=== PATIENT | female | born 1955 | race Caucasian/White ===

== ENCOUNTER → 2023-10-29 08:03 | Outpatient (REF) | payer MEDICARE, OTHER, SELFPAY | LOC: HWRCS 08:03 | PROVIDERS: ATTENDING PHYSICIAN Internal Medicine Cardiovascular Disease; FAMILY PHYSICIAN Family Medicine | DX: E78.5 Hyperlipidemia, unspecified (principal); I34.0 Nonrheumatic mitral (valve) insufficiency | CPT/HCPCS: 93306 ==

== ENCOUNTER → 2024-03-25 08:56 | Outpatient (REF) | payer MEDICARE, OTHER, SELFPAY | LOC: HWWDC 08:56 | PROVIDERS: ATTENDING PHYSICIAN Family Medicine | DX: Z12.31 Encounter for screening mammogram for malignant neoplasm of breast (principal) | CPT/HCPCS: 77063; 77067 ==

== ENCOUNTER 2024-06-13 06:24 | Day surgery (SDC) | payer MEDICARE, OTHER, SELFPAY | END 2024-06-13 11:27 | disposition home or self-care (01) | LOC: GI 06:24 | PROVIDERS: ATTENDING PHYSICIAN Student in an Organized Health Care Education/Training Program | DX: Z12.11 Encounter for screening for malignant neoplasm of colon (principal); D12.2 Benign neoplasm of ascending colon; K57.30 Diverticulosis of large intestine without perforation or abscess without bleeding; K62.89 Other specified diseases of anus and rectum; K64.0 First degree hemorrhoids; Z86.0100 Personal history of colon polyps, unspecified | CPT/HCPCS: 45385; 88305 ==

== ENCOUNTER 2024-10-30 21:22 | Emergency (ER) | payer MEDICARE, OTHER, SELFPAY ==
[2024-10-30 21:24] VITALS: BP 123/72
[2024-10-30 22:08] VITALS: BMI 25.1
[2024-10-30 22:14] VITALS: BP 107/58
--- NOTE | 2024-10-30 22:23 | ED.GENMED ---
History of Present Illness
General
Chief Complaint: Fever
Source: patient and spouse
Exam Limitations: none
Time Seen by Provider: 10/30/24 22:05
Nursing documentation reviewed up to this point in time: agreed with
History of Present Illness
History of Present Illness:
69-year-old female presenting to the emergency department today with concerns of redness and swelling to her back also had a fever of 100.2 at home today. Redness and discomfort to her back was initially wanted yesterday now roughly 5 inches in
width according to the patient. Denies any chest pain shortness of breath.
Review of Systems
Review of Systems
Allergies reviewed?: Yes
All Other Systems: ROS reviewed and negative except as documented in HPI and ROS
Phy Exam
Physical Exam
Physical Exam:
GENERAL: Alert , in no apparent distress
EYE: pupils equal and reactive
NECK: Supple, no significant adenopathy.
ENT: o/p clr, mmm.
CARDIAC: Regular rate and rhythm .
LUNGS: Clear breath sounds bilaterally, no acute respiratory distress, no wheezes/rales/rhonchi
ABDOMEN: Soft, without focal tenderness, no r/g, no cvat
NEUROLOGICAL: Alert and oriented, no focal neuro deficits
SKIN: 10 cm in diameter redness patch to the left lateral upper back no fluctuance or induration. Mild tenderness. Warm and dry, skin intact.
MUSCULOSKELETAL: No edema, well perfused.
PSYCH: Normal and appropriate interaction.
Course
Orders/Labs/Results
Orders:
Orders
10/30/24 22:21
Clindamycin 600 mg/50 ml [Cleocin] 600 mg in 50 ml IV NOW
10/30/24 22:22
0.9% Sodium Chloride 1000 ml [Nss] 1,000 ml IV BOLUS
Acetaminophen [Tylenol] 1,000 mg PO NOW STA
Ketorolac [Toradol] 15 mg IV NOW STA
10/30/24 22:24
CBC/With Diff [Complete Blood Count/With Diff] Urgent
CMP [Comprehensive Metabolic Panel] Urgent
10/30/24 22:54
Ampicillin/Sulbactam 3 G [Unasyn] 3 gm 0.9% Sodium Chloride 100 ml [Nss] 100 ml IV NOW
10/30/24 23:43
Add On- LAB Urgent
Tests Added?: lyme progressive
10/30/24 23:50
Doxycycline [Vibramycin] 100 mg PO NOW STA
Abnormal Lab Results
10/30/24
22:24
RBC 4.12 L 10^6/uL
(4.20-5.40)
MCH 31.3 H pg
(27.0-31.0)
Immature Gran % 0.6 H %
(0-0.5)
Glucose 146 H mg/dl
(70-99)
Total Bilirubin 1.5 H mg/dl
(0.2-1.3)
10/30/24 22:24
10/30/24 22:24
Vital Signs
Initial and Last Documented VS:
Initial Vital Signs
Temp Pulse Resp BP Pulse Ox
99.9 F 79 18 123/72 99
10/30/24 21:24 10/30/24 21:24 10/30/24 21:24 10/30/24 21:24 10/30/24 21:24
Last Documented Vital Signs
Temp Pulse Resp BP Pulse Ox
99.1 F 63 16 100/51 97
10/30/24 23:38 10/30/24 23:38 10/30/24 23:38 10/30/24 23:38 10/30/24 23:38
MDM/Problems Addressed
MDM/Problems Addressed:
69 old female presenting to the emergency department today with concerns of a low-grade temperature here. Patient does have a patch of redness swelling tenderness to the left upper back no fluctuance or induration no evidence of abscess. Claims to
have an allergy to cephalosporins and Bactrim so was started on penicillin. The possibility of Lyme was also considered was also started on doxycycline. Otherwise patient well-appearing here no white count feels much better after receiving Motrin
Tylenol stable for outpatient management advised for close outpatient follow-up with the primary care doctor. Return precautions given.
*Critical Care Note
Total Time (30-74mins, 75-104mins- exclusive of procedures): Not Applicable
ED Attending Note
-
Portions of this chart may have been created with voice recognition software.� Occasional wrong word or��sound alike� substitutions may have occurred due to the inherent limitations of voice recognition software.
Discharge Plan
Departure
Patient Disposition: Home (Routine Discharge)
Date of Disposition: 10/30/24
Time of Disposition: 23:53
Patient with high blood pressure during this ER visit?: No
Condition: Good
Covid-19: Not Applicable
Discharge Problem:
Cellulitis
Instructions: Cellulitis (skin infection) in adults - ED discharge instructions
Prescriptions:
New
doxycycline hyclate 100 mg tablet
100 mg PO BID 7 Days Qty: 14 0RF
amoxicillin-pot clavulanate 875-125 mg tablet
1 tab PO BID 7 Days Qty: 14 0RF
Referrals:
Anson Mitchell DO [Family Provider, Family Practice]
Activity Restrictions/Additional Instructions:
You came to the emergency department today with concerns of a rash. This is likely bacterial infection. Please take the prescribed antibiotics and follow-up closely with your primary care doctor within the next week or 2 for reassessment. Return
for any worsening, new or concerning symptoms.
Interventions
Interventions:
*Risk Screen - Suicide Last Done: 10/30/24 22:09
*General Assessment Last Done: 10/30/24 22:09
*Neglect/Abuse Screening Last Done: 10/30/24 22:09
*ED- Fall Risk Assessment Last Done: 10/30/24 22:09
*ED COVID-19 Vaccine History Last Done: 10/30/24 22:09
ED- Neurological Assessment Last Done: 10/30/24 22:20
ED-Skin Assessment Last Done: 10/30/24 22:20
Discharge Date and Time
Print Language: CITIZEN OF [place]
[2024-10-30 22:31] LABS: % Basophils 0.7 % (0-2); % Eosinophils 1.9 % (0-6); % Immature Granulocytes 0.6 % (0-0.5); % Monocytes 8.9 % (1.7-9.3); % Neutrophils 64.9 % (42.2-75.2); Absolute Basophils 0.1 10^3/uL (0-0.2); Absolute Eosinophils 0.1 10^3/uL (0-0.7); Absolute Lymphocytes 1.6 10^3/uL (1.2-3.4); Absolute Monocytes 0.6 10^3/uL (0.1-0.6); Absolute Neutrophils 4.4 10^3/uL (1.4-6.5); Hematocrit 38.1 % (37.0-47.0); Hemoglobin 12.9 g/dL (12.0-16.0); Mean Corp Hgb Conc. 33.9 g/dL (33.0-37.0); Mean Corpuscular Hgb 31.3 pg (27.0-31.0); Mean Corpuscular Volume 92.5 fL (81.0-99.0); Mean Platelet Volume 9.8 fL (7.4-10.4); Nucleated Red Blood Cells % 0 %; Platelet Count 202 10^3/uL (130-400); Red Blood Cell Count 4.12 10^6/uL (4.20-5.40); Red Cell Dist. Width 12.6 % (11.5-14.5); White Blood Cell Count 6.8 10^3/uL (4.8-10.8)
[2024-10-30] MEDS: NSS 1000 IV (22:31)
[2024-10-30] MEDS: TYLENOL 1000 MG PO (22:32)
[2024-10-30] MEDS: TORADOL 15 MG IV (22:34)
[2024-10-30 22:49] LABS: ALT (SGPT) 23 U/L (0-35); AST (SGOT) 23 U/L (14-36); Albumin 4.6 g/dl (3.5-5.0); Alkaline Phosphatase 49 U/L (38-126); Blood Urea Nitrogen 14 mg/dl (7-17); Carbon Dioxide 25 mmol/L (22-30); Chloride 107 mmol/L (98-107); Estimated Creatinine Clearance 59 ml/min; Glucose 146 mg/dl (70-99); Potassium 4.1 mmol/L (3.5-5.1); Sodium 139 mmol/L (135-145); Total Bilirubin 1.5 mg/dl (0.2-1.3); Total Protein 7.6 g/dl (6.3-8.2); eGFR > 60.00
[2024-10-30 23:00] VITALS: BP 99/58
[2024-10-30] MEDS: UNASYN IV (23:08)
[2024-10-30 23:38] VITALS: BP 100/51
[2024-10-30] MEDS: VIBRAMYCIN 100 MG PO (23:57)
[2024-10-31 13:11] LABS: Lyme Antibody Screen, EIA Negative (Negative)
== END 2024-10-31 00:06 | disposition home or self-care (01) ==
LOC: EMR 21:22
PROVIDERS: Physician Assistant; EMERGENCY PHYSICIAN Emergency Medicine; FAMILY PHYSICIAN Family Medicine
DX: L03.312 Cellulitis of back [any part except buttock and flank] (principal); R50.9 Fever, unspecified
CPT/HCPCS: 96374; 96375; 96361; 99284; 80053; 85025; 86618

== ENCOUNTER → 2024-11-03 08:58 | Outpatient (REF) | payer MEDICARE, OTHER, SELFPAY | LOC: RCS 08:58 | PROVIDERS: ATTENDING PHYSICIAN Internal Medicine Cardiovascular Disease; FAMILY PHYSICIAN Family Medicine | DX: I34.0 Nonrheumatic mitral (valve) insufficiency (principal); E78.5 Hyperlipidemia, unspecified | CPT/HCPCS: 93306 ==

== ENCOUNTER → 2024-11-24 08:07 | Outpatient (REF) | payer MEDICARE, OTHER, SELFPAY | LOC: RCS 08:07 | PROVIDERS: ATTENDING PHYSICIAN Internal Medicine Cardiovascular Disease; FAMILY PHYSICIAN Family Medicine | DX: I34.1 Nonrheumatic mitral (valve) prolapse (principal); I34.0 Nonrheumatic mitral (valve) insufficiency; R53.83 Other fatigue | CPT/HCPCS: 93017; 93350 ==